=== PATIENT | male | born 2000 | race Caucasian/White ===

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

== ENCOUNTER 2023-10-18 18:36 | Emergency (ER) | payer MEDICAID, OTHER ==
[2023-10-18 18:51] VITALS: BP 129/78; PULSE 77
[2023-10-18] MEDS: methylPREDNISolone Sodium Succinate 125 MG/2 ML SDV IVPUSH ONE (19:26)
== END 2023-10-18 19:46 | disposition home or self-care (01) ==
LOC: JP.ED 18:36
DX: B27.99 Infectious mononucleosis, unspecified with other complication (principal); J35.1 Hypertrophy of tonsils; F17.210 Nicotine dependence, cigarettes, uncomplicated
CPT/HCPCS: 96374; 99283; J2919

== ENCOUNTER 2024-01-04 12:33 | Emergency (ER) | payer MEDICAID ==
[2024-01-04 12:43] VITALS: BP 133/78; PULSE 68
[2024-01-04] MEDS: Acetaminophen/Codeine 300-30 MG Tab PO ONE (13:19)
[2024-01-04 13:21] LABS: BASOPHILS ABSOLUTE AUTO 0.05 K/uL (0.00-0.10); BASOPHILS PERCENT AUTO 0.6 % (0.1-1.3); EOSINOPHILS ABSOLUTE AUTO 0.12 K/uL (0.00-0.40); EOSINOPHILS PERCENT AUTO 1.5 % (0.0-5.4); HEMATOCRIT 42.3 % (38.4-49.7); HEMOGLOBIN 15.1 g/dL (12.9-16.9); IMMATURE GRAN PERCENT AUTO 0.1 % (0.0-0.7); LYMPHOCYTES ABSOLUTE AUTO 2.57 K/uL (0.8-3.3); LYMPHOCYTES PERCENT AUTO 33.2 % (11.4-47.7); MEAN CORPUSCULAR HEMOGLOBIN 30.8 pg (31.6-35.5); MEAN CORPUSCULAR HGB CONC 35.7 g/dL (31.6-35.5); MEAN CORPUSCULAR VOLUME 86.3 fL (81.4-99.0); MONOCYTES ABSOLUTE AUTO 0.72 K/uL (0.20-0.90); MONOCYTES PERCENT AUTO 9.3 % (3.3-12.6); NEUTROPHILS ABSOLUTE AUTO 4.28 K/uL (1.0-7.6); NEUTROPHILS PERCENT AUTO 55.3 % (40.0-78.1); PLATELET COUNT,PLT 209 K/uL (130-375); WHITE BLOOD CELL COUNT,WBC 7.8 K/uL (3.2-11.0)
[2024-01-04 13:22] LABS: IMMATURE GRAN ABSOLUTE AUTO 0.01 K/uL (0.00-0.23)
[2024-01-04 13:42] LABS: A/G RATIO 1.4 (1.2-2.2); ALANINE AMINOTRANSFERASE,ALT 19 U/L (12-78); ALBUMIN 4.3 g/dL (3.4-5.0); ALKALINE PHOSPHATASE 62 U/L (46-116); ANION GAP 9.8 mmol/L (5.0-14.0); ASPARTATE AMNIOTRANSFERASE,AST 13 U/L (15-37); BILIRUBIN TOTAL 1.2 mg/dL (0.2-1.0); BLOOD UREA NITROGEN,BUN 16 mg/dL (7-18); CALCIUM 9.8 mg/dL (8.5-10.1); CARBON DIOXIDE,CO2 30 mmol/L (21-32); CHLORIDE,CL 103 mmol/L (100-108); CREATININE 1.2 mg/dL (0.8-1.3); EST CRCL DRUG DOSING (CG) 83.15 mL/min; ESTIMATED GFR 87 mL/min (>60); GLUCOSE RANDOM 98 mg/dL (74-106); POTASSIUM,K 3.8 mmol/L (3.6-5.2); PROTEIN TOTAL,TP 7.3 g/dL (6.4-8.2); SODIUM,NA 139 mmol/L (140-148)
[2024-01-04 13:49] LABS: APPEARANCE,URINE SLIGHTLY CLOUDY (CLEAR); BILIRUBIN,URINE SMALL (NEGATIVE); COLOR,URINE YELLOW (YELLOW); GLUCOSE,URINE NEGATIVE (NEGATIVE); KETONES,URINE 15 mg/dL (NEGATIVE); LEUKOCYTE ESTERASE,URINE NEGATIVE (NEGATIVE); NITRITE,URINE NEGATIVE (NEGATIVE); OCCULT BLOOD,URINE NEGATIVE (NEGATIVE); PROTEIN,URINE 30 mg/dL (NEGATIVE)
[2024-01-04 13:50] LABS: AMPHETAMINES SCREEN, URINE NEGATIVE (NEGATIVE); BARBITURATE SCREEN,URINE NEGATIVE (NEGATIVE); BENZODIAZEPINES SCREEN,URINE NEGATIVE (NEGATIVE); METHADONE SCREEN, URINE NEGATIVE (NEGATIVE); METHAMPHETAMINES SCREEN, URINE NEGATIVE (NEGATIVE); OXYCODONE SCREEN,URINE NEGATIVE (NEGATIVE); PROPOXYPHENE SCREEN,URINE NEGATIVE (NEGATIVE); THC SCREEN,URINE 50 NG/ML PRESUMPTIVE POSITIVE (NEGATIVE)
[2024-01-04 13:58] LABS: AMORPHOUS SEDIMENT,URINE MANY; BACTERIA,URINE RARE; EPITHELIAL CELLS,URINE NOT SEEN; MUCUS,URINE MANY; RBC,URINE NOT SEEN (0-5); WBC,URINE 0-5 (0-5)
== END 2024-01-04 14:54 | disposition home or self-care (01) ==
LOC: JP.ED 12:33
DX: S06.0X0A Concussion without loss of consciousness, initial encounter (principal); Z79.899 Other long term (current) drug therapy; W10.9XXA Fall (on) (from) unspecified stairs and steps, initial encounter
CPT/HCPCS: 36415; 70450; 72125; 76377; 80053; 80305; 80307; 81001; 85025; 99284; A9270

== ENCOUNTER 2024-08-27 22:30 | Emergency (ER) | payer MEDICAID ==
[2024-08-27 22:40] VITALS: BP 133/96; PULSE 44
[2024-08-27] MEDS ORDERED: Naloxone 0.4 MG/ML SDV IVPUSH PRN (23:37)
[2024-08-27] MEDS: Diphtheria,Pertussis(Acell),Tetanus Vaccine 0.5 ML Syringe IM ONE (23:44)
[2024-08-27 23:58] LABS: BASOPHILS ABSOLUTE AUTO 0.05 K/uL (0.00-0.10); BASOPHILS PERCENT AUTO 0.3 % (0.1-1.3); EOSINOPHILS ABSOLUTE AUTO 0.07 K/uL (0.00-0.40); EOSINOPHILS PERCENT AUTO 0.4 % (0.0-5.4); IMMATURE GRAN ABSOLUTE AUTO 0.05 K/uL (0.00-0.23); IMMATURE GRAN PERCENT AUTO 0.3 % (0.0-0.7); LYMPHOCYTES ABSOLUTE AUTO 2.55 K/uL (0.8-3.3); LYMPHOCYTES PERCENT AUTO 15.7 % (11.4-47.7); MONOCYTES ABSOLUTE AUTO 1.65 K/uL (0.20-0.90); MONOCYTES PERCENT AUTO 10.2 % (3.3-12.6); NEUTROPHILS ABSOLUTE AUTO 11.88 K/uL (1.0-7.6); NEUTROPHILS PERCENT AUTO 73.1 % (40.0-78.1); PLATELET COUNT,PLT 201 K/uL (130-375); RED BLOOD CELL COUNT 4.55 M/uL (4.14-5.76); WHITE BLOOD CELL COUNT,WBC 16.3 K/uL (3.2-11.0)
[2024-08-28 00:05] LABS: BLOOD UREA NITROGEN,BUN 8.0 mg/dL (7-18); CARBON DIOXIDE,CO2 28.0 mmol/L (21-32); CHLORIDE,CL 103.0 mmol/L (100-108); CREATININE 1.0 mg/dL (0.8-1.3); EST CRCL DRUG DOSING (CG) 99.24 mL/min; ESTIMATED GFR 108.0 mL/min (>60); GLUCOSE RANDOM 107.0 mg/dL (74-106); POTASSIUM,K 3.1 mmol/L (3.6-5.2); SODIUM,NA 140.0 mmol/L (140-148)
== END 2024-08-28 01:03 | disposition home or self-care (01) ==
LOC: JP.ED 22:30
DX: S62.002A Unspecified fracture of navicular [scaphoid] bone of left wrist, initial encounter for closed fracture (principal); Z23 Encounter for immunization; V86.56XA Driver of dirt bike or motor/cross bike injured in nontraffic accident, initial encounter; Y93.55 Activity, bike riding
CPT/HCPCS: 29125; 36415; 73110-26-LT; 73110-LT; 73130-26-LT; 73130-LT; 80048; 84484; 85025; 90471; 90715; 96372; 99284-25; J1171